=== PATIENT | female | born 2000 | race Caucasian/White ===

== ENCOUNTER → 2020-09-20 13:21 | Outpatient (BNVA) | payer OTHER, SELFPAY | PROVIDERS: Family Provider Family Medicine; Visit Provider Nurse Practitioner Family | DX: Z20.828 Contact with and (suspected) exposure to other viral communicable diseases (principal) | CPT/HCPCS: 87635 ==

== ENCOUNTER → 2022-06-22 14:57 | Outpatient (BNVA) | payer OTHER, SELFPAY | PROVIDERS: Family Provider Family Medicine; Referring Provider Nurse Practitioner Family; Visit Provider Nurse Practitioner Women's Health | DX: Z12.4 Encounter for screening for malignant neoplasm of cervix (principal); E28.2 Polycystic ovarian syndrome | CPT/HCPCS: 88175 ==

== ENCOUNTER 2022-12-05 10:48 | Outpatient (CLI) | payer MEDICAID, SELFPAY ==
--- NOTE | 2022-12-05 | US_ITS ---
WS: [id number] OBSTETRICAL ULTRASOUND COMPLETE HISTORY: Anatomy screening. COMPARISON: None available. Single intrauterine gestation in Cephalic presentation. Cervix is Closed and normal length. Cervical length is 4.0 cm. Normal amount of amniotic fluid surrounds the fetus. Placenta: Fundal and posterior. No previa or abruption. Placenta grade 1 Heart: 138 BPM. 4 chamber heart is not confirmed. Cardiac outflow tracts are visualized but still hernandez ited by body habitus. Anatomy: Intracranial structures are negative. spine is posterior during this examination and v nabila limited. Stomach and bladder are present. Kidneys are not well visualized. Three-vessel cord is n oted. Abdominal wall and cord insertion site are limited. 4 extremities are present. profile: Unremarkable. Gender: Male. measurements: BPD = 5.5 cm = 22w6d HC = 20.5 cm = 22w4d AC = 17.7 cm = 22w4d FL = 4.2 cm = 23w5d EFW: 556 g. Biometry is internally concordant. AGA by ultrasound: 22w6d LORNA by ultrasound: 04/04/2023 US/US OB >= 14 weeks fetus [id number] IMPRESSION: 1. Single intrauterine gestation of 22w6d with an LORNA of 04/04/2023. 2. Quality of the anatomic screening survey is limited due to maternal body [place] bitus. Very poor and limited visualization of the heart and outflow tracts, fet al spine, abdominal wall and cord insertion site and kidneys. Consider short-te rm follow-up. The remaining anatomy appeared normal.
== END 2022-12-05 10:49 | disposition home or self-care (01) ==
LOC: RAD 10:53
PROVIDERS: PCP Nurse Practitioner Family; Visit Provider Family Medicine
DX: Z34.02 Encounter for supervision of normal first pregnancy, second trimester (principal)
CPT/HCPCS: 76805

== ENCOUNTER 2022-12-09 09:50 | Outpatient (CLI) | payer MEDICAID, SELFPAY ==
[2022-12-09 10:21] VITALS: BP 121/63; PULSE 83
== END 2022-12-09 10:29 | disposition home or self-care (01) ==
LOC: OPOB 09:52 → OBGYN 09:53
PROVIDERS: PCP Nurse Practitioner Family; Visit Provider Family Medicine
DX: O26.899 Other specified pregnancy related conditions, unspecified trimester (principal); Z3A.00 Weeks of gestation of pregnancy not specified; Z91.81 History of falling
CPT/HCPCS: 99211

== ENCOUNTER 2023-03-06 15:32 | Outpatient (CLI) | payer OTHER, MEDICAID, SELFPAY ==
[2022-12-09 10:01] VITALS: RESP 16; TEMP 36.9
[2023-03-06 15:45] VITALS: BP 128/80; PULSE 87
[2023-03-06 15:47] VITALS: TEMP 36
[2023-03-06 15:52] VITALS: BMI 38.1
[2023-03-06 15:55] VITALS: RESP 16
[2023-03-06 16:01] VITALS: BP 128/84; PULSE 82
[2023-03-06 16:19] VITALS: BP 123/83; PULSE 75
[2023-03-06 16:31] VITALS: BP 119/79; PULSE 73
== END 2023-03-06 16:40 | disposition home or self-care (01) ==
LOC: OPOB 15:39 → OBGYN 15:40
PROVIDERS: PCP Nurse Practitioner Family; Visit Provider Family Medicine
DX: O16.9 Unspecified maternal hypertension, unspecified trimester (principal); Z3A.00 Weeks of gestation of pregnancy not specified
CPT/HCPCS: 59025; 99211

== ENCOUNTER 2023-03-14 18:02 | Outpatient (CLI) | payer OTHER, MEDICAID, SELFPAY ==
[2023-03-14 18:02] VITALS: RESP 18; BMI 39.0
[2023-03-14 18:16] VITALS: BP 137/86; PULSE 107
[2023-03-14 18:34] VITALS: BP 128/84; PULSE 85
[2023-03-14 18:48] VITALS: BP 126/82; PULSE 84
== END 2023-03-14 19:05 | disposition home or self-care (01) ==
LOC: OPOB 18:13 → OBGYN 18:13
PROVIDERS: PCP Nurse Practitioner Family; Visit Provider Family Medicine
DX: O16.9 Unspecified maternal hypertension, unspecified trimester (principal); Z3A.00 Weeks of gestation of pregnancy not specified
CPT/HCPCS: 59025; 99211

== ENCOUNTER 2023-03-16 10:49 | Inpatient (IN) | payer OTHER, MEDICAID, SELFPAY ==
[2023-03-16] VITALS (33 sets, daily range): BP systolic 115–157; BP diastolic 61–98; PULSE 64–96; RESP 17; BMI 39.4
[2023-03-16 12:16] LABS: Basophils % 0.2 %; Eosinophils # 0.1 10^3/uL (0.0-0.8); Eosinophils % 1.3 %; Hematocrit 38.3 % (37.0-47.0); Hemoglobin 12.6 g/dL (11.5-15.3); Lymphocytes # 2.2 10^3/uL (0.8-4.8); Lymphocytes % 20.2 %; Mean Corpuscular HGB Conc 32.9 g/dL (30.0-36.0); Mean Platelet Volume 11.6 fL (7.4-10.4); Monocytes # 0.5 10^3/uL (0.2-0.9); Monocytes % 4.6 %; Neutrophils # 7.97 10^3/uL (1.8-7.7); Neutrophils % 73.2 %; Nucleated Red Blood Cells % 0 %; Platelet Count 234 10^3/cmm (130-400); Red Blood Count 4.67 10^6/uL (4.1-5.3); Red Cell Distribution Width 13.6 % (12.1-15.1); White Blood Count 10.9 10^3/uL (4.0-10.0)
[2023-03-16 12:23] LABS: Urine Appearance Cloudy (CLEAR); Urine Color Yellow (Yellow); pH Urine 6 (5-7)
[2023-03-16 12:24] LABS: Add Urine Microscopic? YES; Bilirubin Urine 1+ (Negative); Blood Urine Neg (Negative); Glucose Urine UA Norm (Normal); Ketones Urine Negative (Negative); Leukocyte Esterase Urine Negative (Negative); Nitrate Urine Negative (Negative); Protein Urine 2+ (Negative); RBC Urine 0-4 /hpf (0-2); Specific Gravity, Urine 1.025 (1.005-1.030); Urobilinogen Urine 1 mg/dL (Negative); WBC Urine 0-4 /hpf (0-5)
[2023-03-16 12:25] LABS: Add Urine Culture? No; Bacteria Urine 1+ /hpf; Calcium Oxalate Crystals Urine 1 /hpf; Mucus Urine 2+ /hpf
[2023-03-16 12:32] LABS: Alanine Aminotransferase 7 U/L (0-33); Albumin Level 3.3 g/dL (3.5-5.2); Alkaline Phosphatase 124 U/L (35-105); Anion Gap 16.9 (5-19); Aspartate Amino Transferase 12 U/L (0-32); Blood Urea Nitrogen 7 mg/dL (6-20); Calcium 8.8 mg/dL (8.5-10.5); Carbon Dioxide 18 mmol/L (22-29); Chloride 107 mmol/L (98-107); Globulin 2.8 g/dL (1.3-4.6); Glomerular Filtration Rate 197.8 mL/min (90-130); Glucose 83 mg/dL (65-115); Osmolality Calculated 283 mOsm/kg (285-295); Potassium 3.9 mmol/L (3.5-5.1); Sodium 138 mmol/L (136-145); Total Bilirubin 0.2 mg/dL (0.15-1.2); Total Protein 6.1 g/dL (6.6-8.7)
[2023-03-16] MEDS: dextrose 5%-lactated ringers 1,000 ML 125 ML IV (12:33)
[2023-03-16] MEDS: ampicillin 2,000 MG in sodium chloride 0.9% (plus) 50 ML 100 MG IV (12:33)
[2023-03-16] MEDS: miSOPROStol 100 mcg tablet 25 MCG VAGINAL ×3 (12:34→20:33)
[2023-03-16 12:51] LABS: Urine Creatinine 253 mg/dL (28-217)
[2023-03-16 12:57] LABS: UPRO/UCREAT Ratio 0.55 mg/mg CR; Urine Protein Random 139 mg/dL
[2023-03-16] MEDS: ampicillin 1,000 MG in sodium chloride 0.9% (plus) 50 ML 100 MG IV ×2 (16:33→20:27)
[2023-03-17] VITALS (143 sets, daily range): BP systolic 110–185; BP diastolic 58–131; PULSE 68–166; RESP 15–16; TEMP 36.2–36.8; O2SAT 96–99
[2023-03-17] MEDS: ampicillin 1,000 MG in sodium chloride 0.9% (plus) 50 ML 100 MG IV ×6 (00:43→20:20)
[2023-03-17] MEDS: miSOPROStol 100 mcg tablet 25 MCG VAGINAL (00:47)
[2023-03-17] MEDS: dextrose 5%-lactated ringers 1,000 ML 125 ML IV (04:53)
--- NOTE | 2023-03-17 07:34 | P.HPUD_ITS ---
Labor & Delivery H&P Update Date of Procedure: March 16, 2023 Date H&P Performed: 03/15/23 Admission Diagnosis: 23-year-old 1 at 37 weeks estimated gestational age with preeclampsia Primary indication for procedure: 37-week female with preeclampsia Planned procedure: Induction Other information: The patient is a 23-year-old 1 female at 37 weeks estimated gestational age who had been having some intermittent problems with blood pressure over the last several days. In my office on the she was noted to have intermittently elevated blood pressure. Her blood pressure was within normal limits prior to being discharged home. I did elect to have a urinalysis done on her due to having 1+ protein in her urine. The urinalysis demonstrated 2+ protein. Due to her intermittently elevated blood pressures and the increased levels of protein in her urine, the decision was made to move her towards delivery due to her probable preeclampsia and her gestational age. After arriving at the hospital, a preeclamptic profile was performed. And she was found to have a elevated protein creatinine ratio. She continued to have systolic blood pressures that were less than 160, but most often more than 140. Otherwise, her had been relatively unremarkable. Her preeclamptic labs are as follows. Her blood type was a positive. Her antibody screen was negative. Her infectious disease profile was within normal limits. Her initial glucose screen was 161 but she passed her 3-hour glucose screen. She was GBS positive. Rubella immune. Related Problem List Diagnoses (1) 37 weeks gestation of : (2) Preeclampsia: (3) Positive GBS test: A&P Assessment and plan (1) 37 weeks gestation of : Due to the unfavorably of the patient's cervix, we are proceeding with misopro stol. We will adjust her induction regimen depending on how she responds and with her cervix becomes more favorable Status: Acute (2) Preeclampsia: The patient does not have any severe features at this time. Magnesium will not be initiated unless she develops severe blood pressures or other severe features. Status: Acute (3) Positive GBS test: Group B strep positive protocol has been initiated Status: Acute
[2023-03-17] MEDS: lactated ringers 1,000 ML 999 ML IV ×2 (09:24→20:38)
--- NOTE | 2023-03-17 10:00 | ANES.PREANE2 ---
Pre-Anesthetic Assessment Height/Weight: Height 1.73 m Weight 117.48 kg Temp Pulse Resp BP Pulse Ox O2 Del Method 97.5 F L 98 17 147/77 98 Room Air 03/17/23 07:03 03/17/23 10:28 03/16/23 12:06 03/17/23 10:28 03/17/23 10:26 03/17/23 05:56 Preop Diagnosis: IUP epidural Familial anesthetic complications: none Was Beta Sona taken within 24 hours: N/A Was Clonidine taken within 24 hours: N/A Social No alcohol and No tobacco Exam alert and oriented x 3 Airway Submandibular: within normal limits Cervical ROM: within normal limits Mallampati: Class IV Dentition: full Comments: Comments: very small mouth opening History/ROS No significant history except as noted Pulmonary None reported CV/HEM induced for Pre-E, BPs have been stable thus far. None reported Hepatic None reported GI None reported Metabolic None reported Musc/skel None reported Neuropsych None reported Anesthetic Plan ASA status: 3 Anesthesia: Anesthesia Evaluation and Regional (specify below) (labor epidural) Medications/Allergies Home Medications Medication Instructions Recorded Confirmed Last Taken Type [id number] 6-dha 1 tab PO DAILY 03/06/23 03/06/23 Unknown History Allergies Allergy/AdvReac Type Severity Reaction Status Date / Time No Known Allergies Allergy Verified 06/22/22 15:37 Current Medications Generic Name Dose Route Start Last Admin Trade Name Freq PRN Reason Stop Dose Admin Dextrose/Lactated Ringer's 1,000 mls @ 125 mls/hr 03/16/23 12:05 03/17/23 04:53 Dextrose 5%-Lactated Ringers IV 125 mls/hr .Q8H PRN Administration per label comments Ampicillin Sodium 1,000 mg/ 50 mls @ 100 mls/hr 03/16/23 16:15 03/17/23 09:20 Sodium Chloride IV 100 mls/hr Q4H MADELAINE Administration Protocol Oxytocin 30 unit in 500 mls @ 1 mls/hr 03/17/23 04:45 03/17/23 05:10 Pitocin IV Not Given .Q24H MADELAINE Protocol 1 MILLIUNIT/MIN Oxytocin 30 unit/ Sodium 503 mls @ 1 mls/hr 03/17/23 04:30 03/17/23 07:28 Chloride IV 9 mls/hr .Q24H MADELAINE 9 mls/hr Titration Protocol Lactated Ringer's 1,000 mls @ 999 mls/hr 03/17/23 08:47 03/17/23 09:24 Lactated Ringers IV 999 mls/hr .Q1H1M PRN Administration See label comments [facility] An[facility] Medical History (Updated 03/17/23 @ 07:41 by Chu Blank MD) Anxiety with depression Previously treated with lexapro but made her mean and zoloft w/o improvement. Effexor was started in March 2022 with good results. Managed by Gabriela Sánchez IMMIGRATION INVESTIGATOR. Environmental and seasonal allergies No pertinent past medical history neghx: htn,dm,thyroid,dvt/pe PCP: Gabriela Sánchez Surgical History No history of previous surgery Family History Mother Hypercholesteremia Grandmother Thyroid disease Maternal Denies family history of Colon cancer Ovarian cancer Diabetes Heart disease Breast cancer Hypertension Uterine cancer Stroke Social History Do you think of yourself as: Straight/Heterosexual Female Reproductive History : 1 Data Anesthesia 03/16/23 11:51 03/16/23 11:51 Short CBC 03/16/23 Range/Units 11:51 WBC 10.9 H (4.0-10.0) 10^3/uL Hgb 12.6 (11.5-15.3) g/dL Hct 38.3 (37.0-47.0) % MCV 82.0 (81-99) fl Plt Count 234 (130-400) 10^3/cmm Neut % (Auto) 73.2 % Neut # (Auto) 7.97 H (1.8-7.7) 10^3/uL BMP 03/16/23 11:51 Sodium 138 Potassium 3.9 Chloride 107 Carbon Dioxide 18 L BUN 7 Creatinine 0.4 L Glucose 83 Calcium 8.8 Liver Function 03/16/23 Range/Units 11:51 Total Bilirubin 0.2 (0.15-1.2) mg/dL AST 12 (0-32) U/L ALT 7 (0-33) U/L Alkaline Phosphatase 124 H (35-105) U/L Albumin 3.3 L (3.5-5.2) g/dL Urine 03/16/23 Range/Units 11:02 Urine Color Yellow (Yellow) Urine Appearance Cloudy A (CLEAR) Urine pH 6 (5-7) Ur Specific [place] 1.025 (1.005-1.030) Urine Protein 2+ H (Negative) Urine Glucose (UA) Norm (Normal) Urine Ketones Negative (Negative) Urine Nitrate Negative (Negative) Urine Bilirubin 1+ H (Negative) Ur Leukocyte Esterase Negative (Negative) Urine RBC 0-4 H (0-2) /hpf Urine WBC 0-4 H (0-5) /hpf Cardiac Studies: No Data to Display
--- NOTE | 2023-03-17 10:30 | ANES.PROC ---
Anesthesia Procedures Procedure/Date: 03/17/23 Epidural: Time Out Performed: Yes Consents Signed: Procedure Consent Consent: from patient and risks and benefits reviewed Lumbar Level: L3-L4 Epidural position: sitting Epidural procedure: sterile prep of area, 1% lidocaine to numb the area, 18 g needle, negative for paresthesia passed, test dose given, 1.5% xylocaine 1:200k epi, placed PCEA, no systemic response, sterile dressing applied, L.U.D. no apparent complications and 0.2% Ropiavacaine @ mls/hr (13) Additional Comments: THIERNO at 6, taped at 12 at skin, negative blood, negative CSF aspiration. original epidural placement not adequate. epidural replaced by Dr. Cervantes, in and running at 1200. THIERNO at 7, taped at 12 at skin.
--- NOTE | 2023-03-17 12:26 | PC.NURSE ---
Michael Russell REHABILITATION THERAPY TECHNICIAN made x2 attempts at epidural placement, then asked nurse Es Castro RN to contact Dr. Cervantes for assistance. Dr. Cervantes arrived then after 5 attempts at epidural placements was successful.
[2023-03-17] MEDS: acetaminophen 325 mg Tablet 650 MG PO (18:42)
--- NOTE | 2023-03-17 20:26 | PM.OBGYPN ---
MEDICAL STAFF CREDENTIALING COORDINATOR Subjective Subjective: Interval history: The patient received 4 doses of Cytotec overnight. She was placed on Pitocin. An amniotomy was performed this morning. An epidural was placed. She was 1 cm this morning at around 8:00. She dilated to 2 cm at around 2 PM. Her cervix has been about 2 cm since that time. In the infant has had some episodes of reduced variability and decelerations as well. Labor: Station: -3 Amniotic Membrane Status: Leaking Monitor Mode: External Contraction Pattern: Regular Vitals/I&O/Wt Last Vital Signs Temp 98.2 F 03/17/23 17:30 Pulse 101 H 03/17/23 19:59 Resp 16 03/17/23 12:06 BP 120/84 03/17/23 19:59 Pulse Ox 99 03/17/23 12:31 O2 Del Method Room Air 03/17/23 05:56 03/17/23 03/17/23 03/17/23 06:59 14:59 22:59 Intake Total 101.417 / 1251.417 138.75 / 138.75 177.933 / 316.683 Output Total 175 / 175 Balance 101.417 / 1251.417 138.75 / 138.75 2.933 / 141.683 Weight last 48 hrs Weight 259 lb Physical Exam Narrative: The patient is alert. She appears comfortable. Her heart has a regular rate and rhythm with no murmurs appreciated. Lungs are clear to auscultation bilaterally. Gravid 2 cm dilated 80% effaced. -3 station Urinary Catheter Management: Crawford: Cath Placed During This Visit: yes Reason for Continuing Indwelling Catheter: Required Immobilization for Trauma or Surgery or Anesthesia Urinary Catheter Date of Insertion: 03/17/23 Urinary Catheter Time of Insertion: 13:17 Data 03/18/23 06:15 03/16/23 11:51 A&P Assessment and plan (1) Positive GBS test: (2) Preeclampsia: (3) 37 weeks gestation of : (4) Failure to progress in labor: We will proceed with a section. I discussed the risks with the patient and her . We discussed the risks of bleeding, infection, and damage intra-abdominal organs. She and her had no further questions and wish to proceed. Attestations Medical Necessity Statement*: Routine and post care Coding Level of Care Code Acute Code for Chg Fwd Diagnoses Positive GBS test B95.1 Preeclampsia O14.90 37 weeks gestation of Z3A.37 Failure to progress in labor O62.2
[2023-03-17] MEDS: citric acid-sodium citrate 30 mL UDC PO (20:58)
[2023-03-17] MEDS: metoclopramide 5 mg/mL SDV 2 mL 10 MG IVP (20:58)
[2023-03-17] MEDS: famotidine 20 mg/2 mL INJ IVP (20:58)
--- NOTE | 2023-03-17 21:50 | XRR_ITS ---
PROCEDURE INFORMATION: Exam: XR Abdomen Exam date and time: 03/17/2023 9:59 PM Age: 23 years old Clinical indication: Screening exam; Post surgical status; C section; Additional info: Incorrect count in or TECHNIQUE: Imaging protocol: Radiologic exam of the abdomen. Views: Frontal supine view of the abdomen. 1 View. COMPARISON: No relevant prior studies available. FINDINGS: Gastrointestinal tract: Normal. No bowel dilation. Bones/joints: Unremarkable. XR/XR abdomen 1V* [id number] IMPRESSION: No acute findings.
--- NOTE | 2023-03-17 22:17 | PM.OP ---
Operative Report Date of procedure: March 17, 2023 Pre-op diagnosis: 1. 23-year-old 1 at 37 weeks estimated gestational age 2. Preeclampsia 3. Failure to progress Post-op diagnosis: Same Procedure done: Lower transverse section. Specimens removed/disposition: 1. Male with a weight of 6 pounds 4 ounces and Apgars of 8 and 9 2. Placenta with a three-vessel cord delivered intact Pathology: None Surgeon: Chu Blank Estimated blood loss (mL): 500 Procedure: The patient was brought back to the operating room where she was prepped and draped in usual sterile fashion. Anesthesia was found to be adequate. A lower transverse skin incision was made above the pannus with a #10 blade. I then dissected down to the underlying subcutaneous tissue until arriving at the prerectal fascia. The fascia was then nicked with the scalpel bilaterally. The fascial incisions were then carried laterally with Reyes scissors. Attention was then turned to the superior aspect of the incision which was grasped with kochers and tented up away from the underlying rectus abdominis muscles. The muscles were then dissected away from the fascia manually, and later with Reyes scissors. Attention was then turned to the inferior aspect of the incision, and the fascia was dissected away from the underlying muscle in similar fashion. The rectus abdominis muscles were then spread manually. The peritoneum was entered manually. Excellent visualization of the uterus was noted. A lower transverse uterine incision was then made with a #10 blade. Upon arriving at the intrauterine cavity, the uterine incision was then extended manually. The infant was noted to be in vertex position. The baby was delivered without difficulty. There was no meconium. There was a nuchal cord x1. The cord was cut and clamped. The mouth and nose of the infant were suctioned. The baby was then handed to Dr. Nation and the waiting nurse. The placenta was removed intact. The uterus was externalized. The intrauterine cavity was cleansed of any remaining debris. The uterine incision was reapproximated in 2 layers. The first layer was performed with 0 Vicryl in a running locked stitch. The second layer was an imbricating stitch also using 0 Vicryl. The uterus was replaced into the abdomen. The peritoneum was then irrigated with warm saline. I reexamined the uterine incision and found it to be hemostatic. The rectus abdominis muscles were then reapproximated using 0 Vicryl in a running stitch. The fascia was then reapproximated using 0 Vicryl in running stitch. During the count, it was noted that one of the laps was missing. We had an x-ray tech come to the OR stat to perform an x-ray of the abdomen and pelvis and no laps were noted in the abdomen and pelvis. The skin was reapproximated using francia. A sterile dressing was placed. Both the mother and baby were in stable condition.
--- NOTE | 2023-03-17 23:46 | XRR_ITS ---
PROCEDURE INFORMATION: Exam: XR Abdomen Exam date and time: 03/18/2023 12:00 AM Age: 23 years old Clinical indication: Screening exam; Post surgical status; Patient HX: 2nd check due to still incorrect sponge count post csection last night. ; Additional info: Incorrect count in or TECHNIQUE: Imaging protocol: Radiologic exam of the abdomen. Views: Frontal supine view of the abdomen. 1 View. COMPARISON: CR (ABDOMEN, ) 03/17/2023 9:59 PM FINDINGS: Tubes, catheters and devices: Upper pelvic surgical staple line. Gastrointestinal tract: Normal. No bowel dilation. Bones/joints: Unremarkable. XR/XR KUB portable [id number] IMPRESSION: 1. Negative for radiographic findings to indicate a retained surgical sponge. 2. Upper pelvic surgical staple line.
[2023-03-18] VITALS (43 sets, daily range): BP systolic 129–167; BP diastolic 72–96; PULSE 64–98; RESP 16; TEMP 36.4–36.9; O2SAT 94–98
[2023-03-18] MEDS: HYDROcodone-acetaminophen 5-325 mg Tablet PO ×3 (01:20→21:09)
[2023-03-18] MEDS: ketorolac 30 mg/mL INJ IVP ×3 (03:49→18:11)
[2023-03-18 06:39] LABS: Hematocrit 38.5 % (37.0-47.0); Hemoglobin 11.9 g/dL (11.5-15.3); Mean Corpuscular HGB Conc 30.9 g/dL (30.0-36.0); Mean Corpuscular Hemoglobin 27.2 pg (28.0-34.0); Mean Corpuscular Volume 87.9 fl (81-99); Mean Platelet Volume 11.3 fL (7.4-10.4); Platelet Count 201 10^3/cmm (130-400); Red Blood Count 4.38 10^6/uL (4.1-5.3); Red Cell Distribution Width 13.8 % (12.1-15.1); White Blood Count 13.2 10^3/uL (4.0-10.0)
[2023-03-18] MEDS: dextrose 5%-lactated ringers 1,000 ML 125 ML IV (10:00)
[2023-03-18] MEDS: prenatal vitamin Capsule 1 CAP PO (10:00)
[2023-03-18] MEDS: lanolin oint 7 gm 1 APPLIC TOPICAL (11:14)
--- NOTE | 2023-03-18 12:37 | ANE.PACU2 ---
Inpatient post-anesthesia follow up: Airway intact: Yes Vital signs: Temperature 98.2 F Pulse Rate 78 Respiratory Rate 15 Blood Pressure 131/75 Pulse Oximetry 95 Oxygen Delivery Me thod Room Air Oxygen Flow Rate Fraction of Inspir ed Oxygen Hydration adequate: Yes Nausea and vomiting: No Pain level: 3 Mental status: Baseline
--- NOTE | 2023-03-18 13:15 | PM.OBGYPN ---
STRIKE WARFARE/MISSILE SYSTEMS OFFICER Subjective Subjective: Interval history: She is doing well today. she has been breast-feeding well. Her bleeding has been limited. She passed flatus. Her urine output has been marginal but appears to be improving. Her pain is been reasonably well controlled. Labor: Station: -3 Amniotic Membrane Status: Leaking Monitor Mode: Palpation Contraction Pattern: Irregular Vitals/I&O/Wt Last Vital Signs Temp 98.2 F 03/18/23 02:29 Pulse 78 03/18/23 05:32 Resp 15 03/17/23 22:20 BP 131/75 03/18/23 05:32 Pulse Ox 95 03/18/23 02:29 O2 Del Method Room Air 03/18/23 02:29 03/17/23 03/18/23 03/18/23 22:59 06:59 14:59 Intake Total 177.933 / 977.851 7772 / 1416.683 Output Total 375 / 375 1045 / 1420 Balance -197.067 / -58.317 55 / -3.317 Physical Exam Narrative: She is in no acute distress Lungs are clear auscultation bilaterally Her heart has a regular rate and rhythm Her fundus is below the umbilicus and firm Her dressing is clean, dry and intact Her lower extremities have 1+ edema Urinary Catheter Management: Crawford: Cath Placed During This Visit: yes Reason for Continuing Indwelling Catheter: Required Immobilization for Trauma or Surgery or Anesthesia Urinary Catheter Date of Insertion: 03/17/23 Urinary Catheter Time of Insertion: 13:17 Data 03/18/23 06:15 03/16/23 11:51 A&P Assessment and plan (1) Failure to progress in labor: (2) Preeclampsia: Her blood pressures reasonable overall. She has not had severe blood pressures. Many have been in the normal range. No further intervention is needed at this time. (3) 37 weeks gestation of : (4) Status post : She has been recovering well. There have been no problems. Attestations Medical Necessity Statement*: Routine post care Coding Level of Care Code Acute Code for Chg Fwd Diagnoses Failure to progress in labor O62.2 Preeclampsia O14.90 37 weeks gestation of Z3A.37 Status post Z98.891
--- NOTE | 2023-03-18 14:50 | XRR_ITS ---
PROCEDURE INFORMATION: Exam: XR Pelvis Exam date and time: 03/18/2023 3:17 PM Age: 23 years old Clinical indication: Study performed for possible retained surgical item in a patient currently under anesthesia. Surgical item - scalp electrode. Device placement; Other: Fb; Prior surgery; Surgery date: Post-operative (0-2 days); Surgery type: Pelvic; Additional info: Potential scalp electrode, portable TECHNIQUE: Imaging protocol: Radiologic exam of the pelvis. Views: 1 or 2 view. COMPARISON: CR (ABDOMEN, ) 03/18/2023 12:00 AM FINDINGS: Tubes, catheters and devices: Surgical francia overlie the lower abdomen. No other radiopaque foreign body seen. Bones/joints: Unremarkable. No acute fracture. Soft tissues: See Tubes, catheters and devices finding. XR/XR pelvis 1-2V* [id number] IMPRESSION: No evidence for retained scalp electrode.
[2023-03-18] MEDS: docusate sodium 100 mg Capsule PO (18:11)
[2023-03-19] MEDS: HYDROcodone-acetaminophen 5-325 mg Tablet PO ×3 (02:16→11:48)
[2023-03-19 02:32] VITALS: BP 141/93; PULSE 92; RESP 16; O2SAT 99
[2023-03-19] MEDS: guaiFENesin-dextromethorphan UDC 10 mL PO (04:12)
[2023-03-19 04:20] VITALS: BP 147/89; PULSE 82; O2SAT 99
--- NOTE | 2023-03-19 07:09 | P.DS_ITS ---
Discharge Providers [employer] Date of Admission: 03/16/23 10:49 Date of Discharge: 03/19/23 Attending Provider at Admission: James Blank MD Attending Provider at Discharge: James Blank MD Primary Care Provider: Gabriela Sánchez APN Diagnoses at Discharge Discharge Diagnosis (1) Positive GBS test: Status: Acute (2) Preeclampsia: Status: Acute (3) 37 weeks gestation of : Status: Acute (4) Failure to progress in labor: Status: Acute Reason for Visit Reason for Visit: induction Hospital Course Hospital Course The patient presented to the hospital for induction due to preeclampsia at 37 weeks EGA. Despite misoprostol, Pitocin, and an amniotomy, the patient failed to progress and ultimately had a . She never had any severe features of preeclampsia. Magnesium was never initiated. Her course has been relatively unremarkable. Her bleeding has been minimal. Her pain is been well controlled. She has passed flatus and has tolerated a regular diet. Many of her blood pressures have been within normal limits, but she has also had some blood pressures with systolics in the 140s to 150s. Otherwise there have been no concerns. Information Peripartum Data: Infant Delivery Method: Physical Exam Narrative: She is in no acute distress Lungs are clear auscultation bilaterally Her heart has a regular rate and rhythm Her fundus is below the umbilicus and firm Her dressing is clean, dry and intact Her extremities have 1+ edema Urinary Catheter Management: Crawford: Cath Placed During This Visit: yes, but has since been removed by the nurse Reason for Continuing Indwelling Catheter: Decision to DC Catheter Urinary Catheter Date of Insertion: 03/17/23 Urinary Catheter Time of Insertion: 13:17 Date Urinary Catheter Removed: 03/18/23 Time Urinary Catheter Discontinued: 17:00 History History History 1 Term Miscarriages/Ectopic Living Children Discharge Data Studies Completed and Pending Completed Studies During Hospitalization Category Date Time Status XR KUB portable [id number] Routine Exams 03/17/23 23:46 Completed XR abdomen 1V* [id number] Stat Exams 03/17/23 21:50 Completed XR pelvis 1-2V* [id number] Stat Exams 03/18/23 14:50 Completed Radiology Impressions Abdomen X-Ray 03/17/23 21:50 IMPRESSION: No acute findings. KUB X-Ray 03/17/23 23:46 IMPRESSION: 1. Negative for radiographic findings to indicate a retained surgical sponge. 2. Upper pelvic surgical staple line. Pelvis X-Ray 03/18/23 14:50 IMPRESSION: No evidence for retained scalp electrode. ADDENDUM: 03/18/23 1605 CRITICAL RESULT: The study was personally discussed on the telephone with JAMES Miles on 03/18/2023 4:00 PM CDT. The results were understood and acknowledged. Laboratory Results WBC 13.2 10^3/uL (4.0-10.0) H 03/18/23 06:15 RBC 4.38 10^6/uL (4.1-5.3) 03/18/23 06:15 Hgb 11.9 g/dL (11.5-15.3) 03/18/23 06:15 Hct 38.5 % (37.0-47.0) 03/18/23 06:15 MCV 87.9 fl (81-99) 03/18/23 06:15 MCH 27.2 pg (28.0-34.0) L 03/18/23 06:15 MCHC 30.9 g/dL (30.0-36.0) 03/18/23 06:15 RDW 13.8 % (12.1-15.1) 03/18/23 06:15 Plt Count 201 10^3/cmm (130-400) 03/18/23 06:15 MPV 11.3 fL (7.4-10.4) H 03/18/23 06:15 Neut % (Auto) 73.2 % 03/16/23 11:51 Lymph % (Auto) 20.2 % 03/16/23 11:51 [place] % (Auto) 4.6 % 03/16/23 11:51 Eos % (Auto) 1.3 % 03/16/23 11:51 Baso % (Auto) 0.2 % 03/16/23 11:51 Neut # (Auto) 7.97 10^3/uL (1.8-7.7) H 03/16/23 11:51 Lymph # (Auto) 2.2 10^3/uL (0.8-4.8) 03/16/23 11:51 [place] # (Auto) 0.5 10^3/uL (0.2-0.9) 03/16/23 11:51 Eos # (Auto) 0.1 10^3/uL (0.0-0.8) 03/16/23 11:51 Baso # (Auto) 0.0 10^3/uL (0.0-0.1) 03/16/23 11:51 Nucleated RBC % (auto) 0 % 03/16/23 11:51 Nucleated RBCs # 0.0 /100WBC 03/16/23 11:51 Sodium 138 mmol/L (136-145) 03/16/23 11:51 Potassium 3.9 mmol/L (3.5-5.1) 03/16/23 11:51 Chloride 107 mmol/L (98-107) 03/16/23 11:51 Carbon Dioxide 18 mmol/L (22-29) L 03/16/23 11:51 Anion Gap 16.9 (5-19) 03/16/23 11:51 BUN 7 mg/dL (6-20) 03/16/23 11:51 Creatinine 0.4 mg/dL (0.5-0.9) L 03/16/23 11:51 GFR Calculation 197.8 mL/min (90-130) H 03/16/23 11:51 Glucose 83 mg/dL (65-115) 03/16/23 11:51 Calculated Osmolality 283 mOsm/kg (285-295) L 03/16/23 11:51 Uric Acid 6.0 mg/dL (2.4-5.7) H 03/16/23 11:51 Calcium 8.8 mg/dL (8.5-10.5) 03/16/23 11:51 Total Bilirubin 0.2 mg/dL (0.15-1.2) 03/16/23 11:51 AST 12 U/L (0-32) 03/16/23 11:51 ALT 7 U/L (0-33) 03/16/23 11:51 Alkaline Phosphatase 124 U/L (35-105) H 03/16/23 11:51 Total Protein 6.1 g/dL (6.6-8.7) L 03/16/23 11:51 Albumin 3.3 g/dL (3.5-5.2) L 03/16/23 11:51 Globulin 2.8 g/dL (1.3-4.6) 03/16/23 11:51 Urine Color Yellow (Yellow) 03/16/23 11:02 Urine Appearance Cloudy (CLEAR) A 03/16/23 11:02 Urine pH 6 (5-7) 03/16/23 11:02 Ur Specific [place] 1.025 (1.005-1.030) 03/16/23 11:02 Urine Protein 2+ (Negative) H 03/16/23 11:02 Urine Glucose (UA) Norm (Normal) 03/16/23 11:02 Urine Ketones Negative (Negative) 03/16/23 11:02 Urine Blood Neg (Negative) 03/16/23 11:02 Urine Nitrate Negative (Negative) 03/16/23 11:02 Urine Bilirubin 1+ (Negative) H 03/16/23 11:02 Urine Urobilinogen 1 mg/dL (Negative) H 03/16/23 11:02 Ur Leukocyte Esterase Negative (Negative) 03/16/23 11:02 Urine RBC 0-4 /hpf (0-2) H 03/16/23 11:02 Urine WBC 0-4 /hpf (0-5) H 03/16/23 11:02 Ur Squamous Epith Cells 10-15 /hpf (0-5) H 03/16/23 11:02 Calcium Oxalate Crystal 1 /hpf 03/16/23 11:02 Amorphous Sediment Not Reportable 03/16/23 11:02 Urine Bacteria 1+ /hpf (NONE) H 03/16/23 11:02 Urine Mucus 2+ /hpf 03/16/23 11:02 U Random Total Protein 139 mg/dL 03/16/23 11:02 Urine Creatinine 253 mg/dL (28-217) H 03/16/23 11:02 Protein/Creatinin Ratio 0.55 mg/mg CR 03/16/23 11:02 Vitals Last Vital Signs Temp 97.6 F 03/18/23 23:00 Pulse 82 03/19/23 04:20 Resp 16 03/19/23 02:32 BP 147/89 03/19/23 04:20 Pulse Ox 99 03/19/23 04:20 O2 Del Method Room Air 03/19/23 04:20 Discharge Plan Discharge Patient Disposition: Home Condition: Stable Prescriptions: New ibuprofen 800 mg Tablet 800 mg PO TID Qty: 45 0RF hydrocodone-acetaminophen 5-325 mg Tablet 1 tab PO Q6H PRN (Reason: Moderate To Severe Pain) Qty: 28 0RF docusate sodium 100 mg Capsule 100 mg PO BID Qty: 14 0RF Continued [id number] 6-dha 1 tab PO DAILY Discharge Orders: Discharge Order (Routine); Ordered 03/19/23 Ordered By: James Blank Referrals: James Blank MD [Physician] - 03/22/23 (Schedule at the same time as the appointment for her baby.) Discharge Diet: Usual diet Discharge Activity: Limit activity as instructed Patient Instructions: Opioid Safety Discharge Attestations [employer] Time Spent in Discharge Care*: less than 30 min Coding Level of Care Code Acute Code for Chg Fwd Diagnoses Positive GBS test B95.1 Preeclampsia O14.90 37 weeks gestation of Z3A.37 Failure to progress in labor O62.2
[2023-03-19] MEDS: ibuprofen 800 mg tablet PO (08:38)
[2023-03-19] MEDS: prenatal vitamin Capsule 1 CAP PO (08:38)
[2023-03-19] MEDS: docusate sodium 100 mg Capsule PO (08:38)
[2023-03-19 11:00] VITALS: BP 143/94; PULSE 64; RESP 16; TEMP 36.9
[2023-03-19 13:03] VITALS: BP 143/94; PULSE 64; RESP 16; TEMP 36.9
--- NOTE | 2023-03-19 13:58 | PC.NURSE ---
Plan for feedings until maturation of breastmilk (next 12-24 hours), latch and encourage at least 15 minutes of active feeding, supplement with expressed breastmilk at the breast during the feed, after feed double pump for 5 minutes for extra stimulation (use this expressed milk for next feed). Education provided to patient and father of baby on supplementing expressed milk with syringe, FOB able to demonstrate how to assist patient and infant in this way.
== END 2023-03-19 13:15 | disposition home or self-care (01) | DRG 788 ==
LOC: OPOB 10:55 → OBGYN 10:57 → OPOB 11:51 → OBGYN 11:51
PROVIDERS: Admitting Provider Family Medicine; PCP Nurse Practitioner Family; Visit Provider Family Medicine
PROC: 10D00Z1 Extraction of Products of Conception, Low, Open Approach (ICD-10-PCS; CPT 59514; principal; 2023-03-17 21:10)
DX: O14.04 Mild to moderate pre-eclampsia, complicating childbirth (principal); Z3A.37 37 weeks gestation of pregnancy; Z37.0 Single live birth; O99.824 Streptococcus B carrier state complicating childbirth; O69.81X0 Labor and delivery complicated by cord around neck, without compression, not applicable or unspecified; O62.2 Other uterine inertia
CPT/HCPCS: 12345; 36415; 51702; 59025; 59409; 72170; 74018; 80053; 81001; 82570; 84156; 84550; 85025; 85027; 96374; 96376; 98960; 99211; J0290; J1885; J2400; J2405; J2765; J2795; J3010; J3490; J7040; J7120; J7121

== ENCOUNTER 2024-07-15 17:56 | Emergency (ER) | payer OTHER, MEDICAID, SELFPAY ==
[2024-07-15 18:01] VITALS: BP 130/72; PULSE 103; RESP 14; O2SAT 96; BMI 36.5
--- NOTE | 2024-07-15 18:17 | ED_ITS ---
HPI - 2 General: Chief complaint: Vaginal Bleeding Stated complaint: possible miscarriage, 6 weeks preg Time Seen by Provider: 07/15/24 18:06 Source: patient Mode of arrival: ambulatory Limitations: no limitations History of Present Illness: Patient is a 24-year-old female present to the emergency department waning of vaginal bleeding onset today. Patient states she is 6 weeks by positive at home testing, did have blood test today but has not gotten the results from this. She is G2, P1 and states that she did not have any complications like this with her last . She does note that she was preeclamptic with her last child, however. States that she initially just had some bleeding comparable to spotting, but soon after started noticing clots when she was wiping. Also was reporting some mild abdominal cramping with radiation into the back, which has since improved. She does note some dizziness, denies any syncopal episodes, palpitations, or other symptoms at this time. MD Complaint: abdominal pain and vaginal bleeding Onset (ago): hour(s) Location: pelvis Severity: mild Quality: Cramping Radiation: other (back) Vaginal bleeding: clots Patient : Yes Number of Weeks : 6 OB History - Current : no complications OB History - Previous Pregnancies: preeclampsia care: none Associated symptoms: Reports abdominal pain; Deny dysuria, headache(s), nausea or vomiting Related Data Home Medications Medication Instructions Recorded Confirmed clonazepam PO PRN anxiety 04/18/24 04/18/24 Allergies Allergy/AdvReac Type Severity Reaction Status Date / Time No Known Allergies Allergy Verified 11/14/23 13:58 Review of Systems 2 General: Reports: 10 or more systems reviewed and unremarkable except in HPI and below Const: Denies: fever(s), chills, change in appetite, change in weight or diaphoresis ENMT: Denies: throat pain or hoarseness Card: Denies: chest pain, palpitations or lightheadedness Resp: Denies: dyspnea, productive cough or wheezing GI: Reports: abdominal pain; Denies: nausea, vomiting, diarrhea, constipation, bloating, change in stool character or hematochezia : Reports: vaginal bleeding; Denies: flank pain, difficulty voiding, dysuria, urinary frequency or urinary urgency Musc: Reports: back pain; Denies: neck pain Skin/Breast: Denies: rash or new lesions Neuro: Reports: dizziness; Denies: headache(s) PFSH ED 2 PFSH: Medical History No pertinent past medical history neghx: htn,dm,thyroid,dvt/pe PCP: Gabriela Sánchez Anxiety with depression Environmental and seasonal allergies Surgical History No history of previous surgery Family History Mother Hypercholesteremia Grandmother Thyroid disease Maternal Denies family history of Colon cancer Ovarian cancer Diabetes Heart disease Breast cancer Hypertension Uterine cancer Stroke Social History Smoking and tobacco/nicotine status: former use of tobacco/nicotine Alcohol intake: never Substance/Drug Use: never Adopted: No Lives independently: Yes Household members: spouse and family Housing: House Marital status: Number of children: 1 Highest education level completed: High School Graduate Do you think of yourself as: Straight/Heterosexual Current gender identity: Female Physical Exam 2 Const: COMMON NORMALS: no acute distress, average body habitus, patient oriented x3, no limitations, healthy appearing, alert and well nourished G ENERAL APPEARANCE: cooperative and comfortable ORIENTATION/CONSCIOUSNESS: Yes awake HENMT: COMMON NORMALS: normocephalic, atraumatic, hearing grossly normal bilaterally, external ears normal, Normal external nose present, Normal nasal mucous membranes and turbinates present and moist oral mucous membranes HEAD & SCALP: normocephalic and atraumatic NOSE: Normal external nose present and Normal nasal mucous membranes and turbinates present EXTERNAL EAR: Yes external ears normal Eye: COMMON NORMALS: Equal, round and reactive pupils present, EOMs intact bilaterally, conjunctivae normal and normal visual andrade by confrontation C ONJUNCTIVA: Yes conjunctivae normal PUPIL: Yes Equal, round and reactive pupils present Neck/C-Spine: COMMON NORMALS: full ROM, supple, no meningeal signs and no JVD Resp: COMMON NORMALS: normal respiratory effort, No retractions, No use of accessory muscles and clear to auscultation bilaterally AUSCULTATION: clear to auscultation bilaterally, no crackles, no rales, no rhonchi and no wheezes Cardio: COMMON NORMALS: no JVD, regular rate, regular rhythm, S1 normal heart sound present, S2 normal heart sound present, No gallops present (Cardio), No clicks present (Cardio), No murmurs present (Cardio), No rub (Cardio) and Peripheral pulses 2+ throughout RATE: regular rate RHYTHM: regular rhythm HEART SOUNDS: S1 normal heart sound present and S2 normal heart sound present PERIPHERAL PULSES: Peripheral pulses 2+ throughout GI: COMMON NORMALS: Normal to inspection, nondistended, normoactive bowel sounds present, Soft to palpation, non-tender, No hepatosplenomegaly present and no masses AUSCULTATION: Yes normoactive bowel sounds PALPATION: Yes Soft to palpation, No Guarding due to palpation present (GI), No Rigid due to palpation and Yes No hepatosplenomegaly present RECTAL EXAM: deferred : COMMON NORMALS: Yes no CVA tenderness BLADDER/KIDNEY EXAM: Yes no CVA tenderness Back/Pelvis: COMMON NORMALS: no CVA tenderness Extremity: COMMON NORMALS: normal to inspection and full ROM Neuro: COMMON NORMALS: patient oriented x3, moves all extremities, no focal motor deficits and no sensory deficits noted SENSORIUM/ORIENTATION: Yes alert MENINGEAL SIGNS: Yes no meningeal signs Psych: COMMON NORMALS: mental status grossly normal, cooperative and speech normal SPEECH: Yes normal speech Skin: COMMON NORMALS: no rashes or lesions noted GENERAL SKIN EXAM: no rashes or lesions noted Procedures Perimortem Number of Weeks : 6 Course 2 Vital Signs: Vital signs: Vital Signs Pulse Rate 110 H 07/15/24 20:59 Respiratory Rate 16 07/15/24 20:59 Blood Pressure 118/71 07/15/24 20:59 Pulse Oximetry 99 07/15/24 20:59 Oxygen Delivery Me thod Room Air 07/15/24 18:01 MDM - OB/Uterine Contractions Medical Decision Making Patient seen for vaginal bleeding, stated she was 6 weeks based off home test, though he did have blood work done today but did not receive the results of this. CBC was unremarkable, beta-hCG did not correlate with her gestational age as it was noted to be subpar. Additionally an ultrasound recommended repeat ultrasound as there was no confirmed IUP. Patient will be discharged home with return precautions and will follow-up with OB as she already has planned in a few days. Reasons to return discussed Lab Data 07/15/24 18:13 Radiology Impressions Ultrasound 07/15/24 18:33 IMPRESSION: of uncertain location and viability. Follow-up ultrasound in 7-10 days is suggested to confirm location and viability. Laboratory Results WBC 12.32 10^3/uL (3.29-11.43) H 07/15/24 18:13 RBC 5.53 10^6/uL (3.85-5.65) 07/15/24 18:13 Hgb 14.70 g/dL (11.27-16.99) 07/15/24 18:13 Hct 45.5 % (36-47) 07/15/24 18:13 MCV 82.3 fl (85-98) L 07/15/24 18:13 MCH 26.6 pg (27-33) L 07/15/24 18:13 MCHC 32.3 g/dL (30-55) 07/15/24 18:13 RDW 13.4 % (12.1-15.1) 07/15/24 18:13 Plt Count 383 10^3/cmm (157-399) 07/15/24 18:13 MPV 10.1 fL (7.4-10.4) 07/15/24 18:13 Neut % (Auto) 70.4 % 07/15/24 18:13 Lymph % (Auto) 23.2 % 07/15/24 18:13 [place] % (Auto) 4.0 % 07/15/24 18:13 Eos % (Auto) 1.8 % 07/15/24 18:13 Baso % (Auto) 0.4 % 07/15/24 18:13 Neut # (Auto) 8.67 10^3/uL (1.8-7.7) H 07/15/24 18:13 Lymph # (Auto) 2.9 10^3/uL (0.8-4.8) 07/15/24 18:13 [place] # (Auto) 0.5 10^3/uL (0.2-0.9) 07/15/24 18:13 Eos # (Auto) 0.2 10^3/uL (0.0-0.8) 07/15/24 18:13 Baso # (Auto) 0.1 10^3/uL (0.0-0.1) 07/15/24 18:13 Nucleated RBC % (auto) 0 % 07/15/24 18:13 Nucleated RBCs # 0.0 /100WBC 07/15/24 18:13 Ser , Semi-Qnt 136.50 mIU/mL 07/15/24 18:13 Blood Type A Positive 07/15/24 18:13 Rho(D) Type Rh positive 07/15/24 18:13 Antibody Screen Negative 07/15/24 18:13 All radiology interpretation(s) finalized by discharge Discharge Plan Discharge Patient Disposition: Home Clinical Impression: Missed Condition: Stable Prescriptions: No Action clonazepam PO PRN (Reason: anxiety) Patient Comments: i dont take it very often. midst Discharge Orders: Discharge ED (Routine); Ordered 07/15/24 Ordered By: Awais Goodwin Referrals: Gabriela Sánchez APN [Primary Care Provider] - Discharge Diet: Usual diet Discharge Activity: Increase activity as tolerated Patient Instructions: Miscarriage (ED) Activity Restrictions/Additional Instructions: Follow-up with your OB as discussed. Return with any new or worsening of symptoms. Coding Level of Care Code ED Alternative Education Teacher for Pia Contreras
[2024-07-15 18:20] LABS: Basophils # 0.1 10^3/uL (0.0-0.1); Basophils % 0.4 %; Eosinophils # 0.2 10^3/uL (0.0-0.8); Eosinophils % 1.8 %; Hematocrit 45.5 % (36-47); Lymphocytes # 2.9 10^3/uL (0.8-4.8); Lymphocytes % 23.2 %; Mean Corpuscular HGB Conc 32.3 g/dL (30-55); Mean Corpuscular Hemoglobin 26.6 pg (27-33); Mean Corpuscular Volume 82.3 fl (85-98); Mean Platelet Volume 10.1 fL (7.4-10.4); Monocytes # 0.5 10^3/uL (0.2-0.9); Neutrophils # 8.67 10^3/uL (1.8-7.7); Neutrophils % 70.4 %; Nucleated Red Blood Cells % 0 %; Platelet Count 383 10^3/cmm (157-399); Red Blood Count 5.53 10^6/uL (3.85-5.65); Red Cell Distribution Width 13.4 % (12.1-15.1); White Blood Count 12.32 10^3/uL (3.29-11.43)
--- NOTE | 2024-07-15 18:33 | USR_ITS ---
PROCEDURE INFORMATION: Exam: US First Trimester, Transabdominal and US , Transvaginal Exam date and time: 07/15/2024 7:27 PM Age: 24 years old Clinical indication: complicated by abdominal or pelvic pain; Generalized abdominal pain; First trimester (<14 weeks 0 days); Gestational age or lmp: 6w 4d by reported lmp; ; Prior surgery; Surgery date: 6+ months; Surgery type: Csection; Patient HX: G2-p1-a0-l1 with positive home test and cramping, light vaginal bleeding today. ; ; Additional info: Abd cramping/bleeding LABS AND CLINICAL REPORTS: Choriogonadotropin in serum (Serum HCG): 137 mIU/mL Last menstrual period start date: 05/30/2024 TECHNIQUE: Imaging protocol: Real-time transabdominal obstetrical ultrasound of the maternal pelvis and a first trimester , less than 14 weeks 0 days, with image documentation. Transvaginal imaging was used for better evaluation of the fetus, adnexa, and/or cervix. COMPARISON: No relevant prior studies available. FINDINGS: GESTATION: Gestation: of uncertain location and viability. No intrauterine is identified. Embryonic/ heart rate: Sought but not identified Extra-embryonic membranes/Placenta: N/A . Amniotic/Chorionic fluid: N/A BIOMETRY: Gestational age (AUA): N/A MATERNAL: Uterus: Uterus measures 12.13 cm x 5.03 cm x 3.69 cm. Endometrial stripe is 1.2 cm in thickness. Cervix: Unremarkable. Endocervical canal is closed. Right ovary/adnexa: Right ovary measures 4.4 cm x 2 cm x 3.7 cm. Right ovarian volume is 17.1 mL. Left ovary/adnexa: Left ovary measures 3.2 cm x 4.2 cm x 2.5 cm. Left ovarian volume is 17.3 mL. There is a 1.8 cm sized simple cyst in the left ovary, possibly a corpus luteum. Ectopic not entirely excluded. Follow-up suggested. Intraperitoneal space: No intraperitoneal free fluid. US/US OB <= 14 weeks fetus [id number] IMPRESSION: of uncertain location and viability. Follow-up ultrasound in 7-10 days is suggested to confirm location and viability.
[2024-07-15 20:09] VITALS: BP 139/74; PULSE 104; RESP 16; O2SAT 97
[2024-07-15] MEDS: acetaminophen 500 mg Tablet 1000 MG PO (20:11)
[2024-07-15 20:59] VITALS: BP 118/71; PULSE 110; RESP 16; O2SAT 99
== END 2024-07-15 21:03 | disposition home or self-care (01) ==
PROVIDERS: Emergency Medicine; Emergency Provider Physician Assistant; PCP Nurse Practitioner Family
DX: O02.1 Missed abortion (principal); Z87.891 Personal history of nicotine dependence
CPT/HCPCS: 36415; 76801; 84702; 85025; 86850; 86900; 99284

== ENCOUNTER → 2024-09-02 08:40 | Outpatient (BNVA) | payer OTHER, MEDICAID, SELFPAY | PROVIDERS: PCP Nurse Practitioner Family; Visit Provider Nurse Practitioner | DX: R00.0 Tachycardia, unspecified (principal); F41.8 Other specified anxiety disorders; E66.9 Obesity, unspecified | CPT/HCPCS: 80053; 80061; 84443 ==

== ENCOUNTER 2024-09-25 09:59 | Outpatient (CLI) | payer OTHER, MEDICAID, SELFPAY ==
--- NOTE | 2024-09-25 10:30 | USR_ITS ---
PROCEDURE INFORMATION: Exam: US Soft Tissue Head and Neck, Thyroid Exam date and time: 09/25/2024 10:21 AM Age: 24 years old Clinical indication: Condition or disease; Other: Thyrotoxicosis; Additional info: E05.90 - thyrotoxicosis, unspecified without thyrotoxic c. . . TECHNIQUE: Imaging protocol: Real-time ultrasound scan of the neck with image documentation. Exam focused on the thyroid. COMPARISON: No relevant prior studies available. FINDINGS: Right thyroid lobe: Heterogeneous echogenicity. No nodules. Left thyroid lobe: Heterogeneous echogenicity. No nodules. Isthmus: No nodules. Lymph nodes: Mildly prominent lymph node with cortical thickening measuring up to 0.8 cm in transverse dimension noted in the left submandibular region. US/US thyroid [id number] IMPRESSION: 1. Heterogeneous thyroid gland, which can be seen with thyroiditis. 2. Mildly prominent reactive lymph node in the left submandibular region. Clinical correlation recommended.
== END 2024-09-25 10:00 | disposition home or self-care (01) ==
LOC: RAD 09:59
PROVIDERS: PCP Nurse Practitioner; Visit Provider Nurse Practitioner
DX: E07.89 Other specified disorders of thyroid (principal)
CPT/HCPCS: 76536

== ENCOUNTER → 2024-10-23 09:43 | Outpatient (BNVA) | payer OTHER, MEDICAID, SELFPAY | PROVIDERS: PCP Nurse Practitioner; Visit Provider Nurse Practitioner | DX: E05.90 Thyrotoxicosis, unspecified without thyrotoxic crisis or storm (principal) | CPT/HCPCS: 84443 ==

== ENCOUNTER → 2025-01-06 08:32 | Outpatient (BNVA) | payer OTHER, MEDICAID, SELFPAY | PROVIDERS: PCP Nurse Practitioner; Visit Provider Nurse Practitioner | DX: E05.90 Thyrotoxicosis, unspecified without thyrotoxic crisis or storm (principal) | CPT/HCPCS: 84439; 84443; 84481; 86800 ==

== ENCOUNTER → 2025-08-06 12:45 | Outpatient (BNVA) | payer OTHER, SELFPAY | PROVIDERS: PCP Nurse Practitioner; Referring Provider Nurse Practitioner Family; Visit Provider Internal Medicine | DX: E05.90 Thyrotoxicosis, unspecified without thyrotoxic crisis or storm (principal) | CPT/HCPCS: 36415; 83516; 84439; 84443; 84480; 86376; 86800 ==